=== PATIENT | female | born 1950 | race Caucasian/White ===

== ENCOUNTER 2024-01-18 06:30 | Day surgery (SDC) | payer MEDICARE, OTHER, SELFPAY ==
[2024-01-18 07:51] VITALS: BMI 21.0
[2024-01-18 07:52] VITALS: BP 160/84; BMI 21.0
[2024-01-18 11:06] VITALS: BP 153/93
[2024-01-18 11:15] VITALS: BP 152/83
[2024-01-18 11:30] VITALS: BP 155/82
== END 2024-01-18 11:51 | disposition home or self-care (01) ==
LOC: GI 06:30
PROVIDERS: ATTENDING PHYSICIAN Internal Medicine Gastroenterology
DX: Z12.11 Encounter for screening for malignant neoplasm of colon (principal); K63.5 Polyp of colon; K63.89 Other specified diseases of intestine; K64.0 First degree hemorrhoids; K56.2 Volvulus; Z86.0101 Personal history of adenomatous and serrated colon polyps; Z98.890 Other specified postprocedural states
CPT/HCPCS: 45390; 45380; 88305